=== PATIENT | male | born 1940 | race Asian ===

== ENCOUNTER 2024-10-14 19:55 | Inpatient (IN) | payer BC, MEDICARE ==
[~2024-10-14] VITALS: Ht 170.2 cm; Wt 61.0 kg
[~2024-10-14 19:55] MED LIST: METF-81 PO
[2024-10-14] MEDS ORDERED: 0.9% SODIUM CHLORIDE 10 ML SYRINGE IVP PRN (20:15)
[2024-10-14] MEDS: SODIUM CHLORIDE 0.9% 1,800 ML IV ONE (20:28)
[2024-10-14] MEDS: CefTRIAXone 1 GM/DEXTROSE 50 ML IV ONE (20:37)
[2024-10-14 20:40] LABS: HEMATOCRIT 33.7 % (41-53); HEMOGLOBIN 11.3 g/dL (13.5-17.5); MEAN CORPUSCULAR HEMOGLOBIN 36.3 pg (26.0-34.0); MEAN CORPUSCULAR HGB CONC 33.4 G/dL (31.0-37.0); MEAN CORPUSCULAR VOLUME 109 fL (80-100); PLATELET COUNT (AUTO) 141 K/uL (150-450); RED CELL DISTRIBUTION WIDTH 17.1 % (11.5-14.5); WHITE BLOOD COUNT (AUTO) 8.9 K/uL (4.5-11.0)
[2024-10-14 20:46] LABS: ANION GAP 11 mmol/L (8-16); CALCIUM, TOTAL 8.5 mg/dL (8.8-10.5); CARBON DIOXIDE 27 mmol/L (22-29); CHLORIDE 95 mmol/L (98-107); CREATININE 1.35 mg/dL (0.60-1.30); GLOMERULAR FILTR. RATE CALC 50 mL/min (>60); GLUCOSE,RANDOM 186 mg/dL (70-110); POTASSIUM 4.2 mmol/L (3.5-5.1); SODIUM SERUM 133 mmol/L (136-145); UREA NITROGEN, BLOOD 14 mg/dL (7-18)
[2024-10-14 20:51] LABS: PROTHROMBIN TIME 10.8 SEC (9.4-11.6)
[2024-10-14 20:53] LABS: COVID AG,FIA SOURCE NASAL SWAB
[2024-10-14 20:55] LABS: TROPONIN I-HIGH SENSITIVITY 14 ng/L (<76)
[2024-10-14 20:56] LABS: LACTIC ACID 1.3 mmol/L (0.4-2.0)
[2024-10-14 20:57] LABS: B-TYPE NATRIURETIC PEPTIDE 65 pg/mL (0-100)
[2024-10-14] MEDS: ACETAMINOPHEN 650 MG/ISO-OSM 65 ML IV ONE (21:21)
[2024-10-14 21:27] LABS: SARS-COV2 (COVID) ANTIGEN,FIA Negative (Negative)
[2024-10-14 21:28] LABS: INFLUENZA TYPE A NEGATIVE FOR TYPE A (NEGATIVE); INFLUENZA TYPE B NEGATIVE FOR TYPE B (NEGATIVE)
[2024-10-14 21:41] LABS: BAND NEUTROPHILS % (MANUAL) 7 % (0-5); BASOPHILS % (MANUAL) 2 % (0-2); EOSINOPHILS % (MANUAL) 4 % (1-6); LYMPHOCYTES % (MANUAL) 10 % (22-44); MONOCYTES % (MANUAL) 9 % (2-9); PLATELET MORPHOLOGY COMMENT LARGE PLTS PRESENT; RBC MORPHOLOGY COMMENT ABNORMAL RBC MORPH; SEGMENTED NEUTROPHILS % 68 % (40-70); TOTAL CELLS COUNTED 100
[2024-10-14] MEDS ORDERED: DEXTROSE 50%-WATER 25 GM/50 ML SYRINGE IVP PRN (22:15)
[2024-10-14] MEDS ORDERED: ONDANSETRON HCL 4 MG/2 ML VIAL IVP PRN (22:15)
[2024-10-14 23:30] VITALS: BP 97/54; PULSE 76; RESP 18; TEMP 99.3; O2SAT 99
[2024-10-15] VITALS (7 sets, daily range): BP systolic 93–125; BP diastolic 44–62; PULSE 69–80; RESP 16–18; TEMP 98.2–101.3; O2SAT 97–100
[2024-10-15] MEDS: HEPARIN SODIUM,PORCINE 5,000 UNITS/ML VIAL SQ SCH
[2024-10-15] MEDS: ACETAMINOPHEN 325 MG TABLET PO PRN (04:20)
[2024-10-15] MEDS: INSULIN LISPRO 100 UNITS/ML SQ PRN (06:06)
[2024-10-15 07:01] LABS: GLUCOMETER DEV NAME(LOC) 5N.2C; GLUCOSE,POINT OF CARE 192 MG/DL (70-110)
[2024-10-15 07:22] LABS: APPEARANCE,URINE CLEAR (CLEAR); BILIRUBIN,URINE NEGATIVE (NEGATIVE); COLOR,URINE COLORLESS (YELLOW); GLUCOSE, URINE (UA) NEGATIVE (NEGATIVE); KETONES,URINE NEGATIVE (NEGATIVE); LEUKOCYTE ESTERASE ,URINE NEGATIVE (NEGATIVE); NITRATE,URINE NEGATIVE (NEGATIVE); OCCULT BLOOD,URINE TRACE (NEGATIVE); PH,URINE 6.5 (5.0-8.0); PROTEIN,URINE NEGATIVE (NEGATIVE); SPECIFIC GRAVITIY, URINE 1.008 (1.003-1.030); UROBILINOGEN,URINE <=1.0 mg/dL (<=1.0)
[2024-10-15 07:25] LABS: HEMOGLOBIN 9.5 g/dL (13.5-17.5); MEAN CORPUSCULAR HEMOGLOBIN 36.8 pg (26.0-34.0); MEAN CORPUSCULAR VOLUME 108 fL (80-100); PLATELET COUNT (AUTO) 126 K/uL (150-450); RED BLOOD CELL COUNT(AUTO) 2.58 MIL/uL (4.50-5.90); RED CELL DISTRIBUTION WIDTH 17.1 % (11.5-14.5)
[2024-10-15 07:39] LABS: BACTERIA,URINE None Seen /HPF (None Seen); RBC,URINE None Seen /HPF (0-2); SQUAMOUS EPITHELIAL CELL,UR None Seen /LPF (None Seen); WBC,URINE None Seen /HPF (0-5)
[2024-10-15 07:45] LABS: ANION GAP 8 mmol/L (8-16); CALCIUM, TOTAL 7.5 mg/dL (8.8-10.5); CARBON DIOXIDE 25 mmol/L (22-29); CHLORIDE 101 mmol/L (98-107); GLOMERULAR FILTR. RATE CALC > 60 mL/min (>60); GLUCOSE,RANDOM 173 mg/dL (70-110); POTASSIUM 3.9 mmol/L (3.5-5.1); SODIUM SERUM 134 mmol/L (136-145); UREA NITROGEN, BLOOD 12 mg/dL (7-18)
[2024-10-15 08:44] LABS: BAND NEUTROPHILS % (MANUAL) 0 % (0-5)
[2024-10-15] MEDS: FAMOTIDINE 20 MG TABLET PO SCH (08:44)
[2024-10-15] MEDS: DOCUSATE SODIUM 100 MG CAPSULE PO SCH (08:45)
[2024-10-15 08:50] LABS: BASOPHILS % (MANUAL) 1 % (0-2); EOSINOPHILS % (MANUAL) 6 % (1-6); LYMPHOCYTES % (MANUAL) 10 % (22-44); MONOCYTES % (MANUAL) 14 % (2-9); RBC MORPHOLOGY COMMENT ABNORMAL RBC MORPH; SEGMENTED NEUTROPHILS % 69 % (40-70); TOTAL CELLS COUNTED 100
[2024-10-15 17:45] LABS: GLUCOMETER DEV NAME(LOC) 5N.2C; GLUCOSE,POINT OF CARE 156 MG/DL (70-110)
[2024-10-15 19:11] LABS: GLUCOMETER DEV NAME(LOC) 5S.2D; GLUCOSE,POINT OF CARE 156 MG/DL (70-110)
[2024-10-15] MEDS ORDERED: SODIUM CHLORIDE 0.9% 500 ML IV ONE (20:57)
[2024-10-15] MEDS: CefTRIAXone 1 GM/DEXTROSE 50 ML IV SCH (21:05)
[2024-10-16] VITALS (11 sets, daily range): BP systolic 90–160; BP diastolic 42–116; PULSE 61–90; RESP 17–20; TEMP 97.5–103.1; O2SAT 96–100
[2024-10-16 05:31] LABS: GLUCOMETER DEV NAME(LOC) 5S.2D; GLUCOSE,POINT OF CARE 176 MG/DL (70-110)
[2024-10-16 07:45] LABS: GLUCOMETER DEV NAME(LOC) 5N.2C; GLUCOSE,POINT OF CARE 132 MG/DL (70-110)
[2024-10-16 12:36] LABS: GLUCOMETER DEV NAME(LOC) 5S.2D; GLUCOSE,POINT OF CARE 182 MG/DL (70-110)
[2024-10-16] MEDS: AZITHROMYCIN 500 MG/NS 250 ML IV SCH (13:38)
[2024-10-16 20:31] LABS: GLUCOMETER DEV NAME(LOC) 5N.1D; GLUCOSE,POINT OF CARE 138 MG/DL (70-110)
[2024-10-16 20:57] LABS: CALCIUM, TOTAL 7.8 mg/dL (8.8-10.5); CREATININE 1.44 mg/dL (0.60-1.30); HEMATOCRIT 27.4 % (41-53); HEMOGLOBIN 9.2 g/dL (13.5-17.5); MEAN CORPUSCULAR HEMOGLOBIN 36.1 pg (26.0-34.0); MEAN CORPUSCULAR HGB CONC 33.5 G/dL (31.0-37.0); MEAN CORPUSCULAR VOLUME 108 fL (80-100); PLATELET COUNT (AUTO) 143 K/uL (150-450); POTASSIUM 4.3 mmol/L (3.5-5.1); RED BLOOD CELL COUNT(AUTO) 2.54 MIL/uL (4.50-5.90); RED CELL DISTRIBUTION WIDTH 16.7 % (11.5-14.5); WHITE BLOOD COUNT (AUTO) 6.4 K/uL (4.5-11.0)
[2024-10-16 21:02] LABS: ALBUMIN 2.6 g/dL (3.4-5.0); BILIRUBIN,TOTAL 0.3 mg/dL (0.1-1.0); TOTAL PROTEIN, SERUM 6.2 g/dL (6.4-8.2)
[2024-10-16 21:21] LABS: GLUCOMETER DEV NAME(LOC) 5N.1D; GLUCOSE,POINT OF CARE 154 MG/DL (70-110)
[2024-10-16 21:21] LABS: BAND NEUTROPHILS % (MANUAL) 6 % (0-5); BASOPHILS % (MANUAL) 3 % (0-2); EOSINOPHILS % (MANUAL) 7 % (1-6); LYMPHOCYTES % (MANUAL) 16 % (22-44); METAMYELOCYTES % 2 % (0-0); MONOCYTES % (MANUAL) 9 % (2-9); PLATELET MORPHOLOGY COMMENT GIANT PLTS PRESENT; RBC MORPHOLOGY COMMENT ABNORMAL R; REACTIVE LYMPHOCYTES 1 % (0-0); SEGMENTED NEUTROPHILS % 56 % (40-70); TOTAL CELLS COUNTED 100
[2024-10-17 00:25] VITALS: BP 97/47; PULSE 54; RESP 16; TEMP 97.8; O2SAT 99
[2024-10-17 04:25] VITALS: BP 97/53; PULSE 62; RESP 16; TEMP 97.7; O2SAT 97
[2024-10-17 05:46] LABS: GLUCOMETER DEV NAME(LOC) 5S.2D; GLUCOSE,POINT OF CARE 112 MG/DL (70-110)
[2024-10-17 05:59] LABS: HEMOGLOBIN 9.9 g/dL (13.5-17.5); MEAN CORPUSCULAR HEMOGLOBIN 36.7 pg (26.0-34.0); MEAN CORPUSCULAR HGB CONC 34.2 G/dL (31.0-37.0); MEAN CORPUSCULAR VOLUME 108 fL (80-100); PLATELET COUNT (AUTO) 156 K/uL (150-450); RED CELL DISTRIBUTION WIDTH 17.5 % (11.5-14.5); WHITE BLOOD COUNT (AUTO) 5.6 K/uL (4.5-11.0)
[2024-10-17 06:07] LABS: ALBUMIN 2.6 g/dL (3.4-5.0); BILIRUBIN,TOTAL 0.3 mg/dL (0.1-1.0); CALCIUM, TOTAL 8.1 mg/dL (8.8-10.5); CREATININE 1.2 mg/dL (0.60-1.30); POTASSIUM 3.9 mmol/L (3.5-5.1); TOTAL PROTEIN, SERUM 6.5 g/dL (6.4-8.2)
[2024-10-17 06:52] LABS: BAND NEUTROPHILS % (MANUAL) 7 % (0-5); BASOPHILS % (MANUAL) 5 % (0-2); EOSINOPHILS % (MANUAL) 9 % (1-6); LYMPHOCYTES % (MANUAL) 17 % (22-44); METAMYELOCYTES % 2 % (0-0); MONOCYTES % (MANUAL) 10 % (2-9); RBC MORPHOLOGY COMMENT ABNORMAL R; SEGMENTED NEUTROPHILS % 50 % (40-70); TOTAL CELLS COUNTED 100
[2024-10-17 08:08] VITALS: BP 118/57; PULSE 67; RESP 17; TEMP 97.6; O2SAT 100
[2024-10-17 11:40] LABS: GLUCOMETER DEV NAME(LOC) 5S.2D; GLUCOSE,POINT OF CARE 175 MG/DL (70-110)
[2024-10-17 11:47] VITALS: BP 95/55; PULSE 94; RESP 19; TEMP 98.1; O2SAT 96
[2024-10-17 15:46] VITALS: BP 121/68; PULSE 66; RESP 19; TEMP 98; O2SAT 98
[2024-10-17 17:40] LABS: GLUCOMETER DEV NAME(LOC) 5N.1D; GLUCOSE,POINT OF CARE 125 MG/DL (70-110)
[2024-10-17 19:20] VITALS: BP 101/53; PULSE 74; RESP 18; TEMP 98.6; O2SAT 96
[2024-10-18 00:31] VITALS: BP 103/52; PULSE 69; RESP 17; TEMP 99.1; O2SAT 95
[2024-10-18 04:44] VITALS: BP 100/54; PULSE 64; RESP 18; TEMP 98.3; O2SAT 97
[2024-10-18 05:51] LABS: GLUCOMETER DEV NAME(LOC) 5S.2D; GLUCOSE,POINT OF CARE 229 MG/DL (70-110)
[2024-10-18 06:34] LABS: HEMATOCRIT 28.1 % (41-53); HEMOGLOBIN 9.5 g/dL (13.5-17.5); MEAN CORPUSCULAR HEMOGLOBIN 36.4 pg (26.0-34.0); MEAN CORPUSCULAR HGB CONC 33.6 G/dL (31.0-37.0); MEAN CORPUSCULAR VOLUME 108 fL (80-100); PLATELET COUNT (AUTO) 211 K/uL (150-450); RED CELL DISTRIBUTION WIDTH 17.3 % (11.5-14.5)
[2024-10-18 06:39] LABS: ALBUMIN 2.6 g/dL (3.4-5.0); BILIRUBIN,TOTAL 0.3 mg/dL (0.1-1.0); CALCIUM, TOTAL 8.2 mg/dL (8.8-10.5); CREATININE 1.16 mg/dL (0.60-1.30); TOTAL PROTEIN, SERUM 6.8 g/dL (6.4-8.2)
[2024-10-18 07:18] VITALS: BP 109/54; PULSE 69; RESP 18; TEMP 98.1; O2SAT 98
[2024-10-18 07:23] LABS: BAND NEUTROPHILS % (MANUAL) 3 % (0-5); EOSINOPHILS % (MANUAL) 11 % (1-6); LYMPHOCYTES % (MANUAL) 26 % (22-44); MONOCYTES % (MANUAL) 13 % (2-9); REACTIVE LYMPHOCYTES 1 % (0-0); SEGMENTED NEUTROPHILS % 46 % (40-70); TOTAL CELLS COUNTED 100
[2024-10-18 08:00] LABS: GLUCOMETER DEV NAME(LOC) 5N.1D; GLUCOSE,POINT OF CARE 94 MG/DL (70-110)
[2024-10-18] MEDS ORDERED: LEVO750T68 PO (09:25)
[2024-10-18 10:50] VITALS: BP 102/55; PULSE 69; RESP 18; TEMP 98; O2SAT 96
[2024-10-18 14:01] LABS: GLUCOMETER DEV NAME(LOC) 5S.2D; GLUCOSE,POINT OF CARE 214 MG/DL (70-110)
== END 2024-10-18 14:15 | disposition home or self-care (01) | DRG 91 ==
LOC: EMS 19:55 → EDH 22:06 → 5S 23:30
PROVIDERS: ADMIT Internal Medicine; ATTEND Internal Medicine
DX: G92.8 Other toxic encephalopathy (principal); J18.9 Pneumonia, unspecified organism; E87.1 Hypo-osmolality and hyponatremia; E11.9 Type 2 diabetes mellitus without complications; D69.6 Thrombocytopenia, unspecified; D64.9 Anemia, unspecified; Z20.822 Contact with and (suspected) exposure to COVID-19; Z83.3 Family history of diabetes mellitus; T14.90XA Injury, unspecified, initial encounter; X58.XXXA Exposure to other specified factors, initial encounter; Y93.89 Activity, other specified; Y92.89 Other specified places as the place of occurrence of the external cause; Y99.8 Other external cause status
CPT/HCPCS: 70450; 71045; 80048; 80053; 81001; 82962; 83605; 83880; 84145; 84484; 85025; 85610; 87040; 87804; 92610; 93005; 97116; 97161; 97530; 99285; J0131; J0456; J0696; J1644; J7040; 36415-L1; 36415-TC